=== PATIENT | male | born 1975 | race Caucasian/White ===

== ENCOUNTER 2018-03-11 21:33 | Emergency (ER) | END 2018-03-12 01:43 | disposition home or self-care (01) ==

== ENCOUNTER 2018-11-09 22:42 | Emergency (ER) | payer MEDICAID ==
[~2018-11-09] VITALS: Ht 172.7 cm; Wt 133.8 kg
[~2018-11-09 22:42] MED LIST: HYDR-4011 PO; IBUP-1542 PO
[2018-11-09 22:44] VITALS: Ht 172.7 cm; Wt 133.8 kg
[2018-11-09] MEDS ORDERED: NICARDipine HCL 30 MG CAPSULE PO ONE (23:30)
--- NOTE | 2018-11-10 00:18 | ERD ---
ER Documentation Chief Complaint Chief Complaint DIZZY, SOB X'S 2 DAYS. DENIES CP HPI 43-year-old male presenting with complaints of intermittent dizziness and intermittent dyspnea for the past 2 days. He states he has had symptoms like this before but never as severe. He denies any associated chest pain, cough, nausea, vomiting, abdominal pain, fever or chills. The shortness of breath is not worse with exertion. It has no alleviating or exacerbating factors. Currently he feels well and is not experiencing the symptoms. ROS All systems reviewed and are negative except as per history of present illness. Medications Home Meds Discontinued Scripts Hydrocodone/Acetaminophen ([place] 5-325 Tablet) 1 Each Tablet, 1 TAB PO Q6H PRN for PAIN, #7 TAB Prov:CHERRY,PAGE C 03/12/18 Ibuprofen* (Motrin*) 600 Mg Tab, 600 MG PO Q6, #30 TAB Prov:CHERRY,PAGE C 03/12/18 Allergies Allergies: Coded Allergies: No Known Allergy (Unverified , 11/09/18) PMhx/Soc Medical and Surgical Hx: pt denies Medical Hx, pt denies Surgical Hx Hx Alcohol Use: Yes (socially) Hx Substance Use: No Hx Tobacco Use: Yes Smoking Status: Former smoker FmHx Family History: No diabetes, No coronary disease Physical Exam Vitals Vital Signs Date Temp Pulse Resp B/P (MAP) Pulse Ox O2 O2 Flow FiO2 Time Delivery Rate 11/10/18 88 19 147/93 95 Room Air 00:45 (111) 11/10/18 80 18 150/105 96 Room Air 00:00 (120) 11/09/18 163/103 23:20 (123) 11/09/18 97.2 97 18 183/118 97 22:44 (139) Physical Exam Const: No acute distress, overweight Head: Atraumatic Eyes: Normal Conjunctiva ENT: Normal External Ears, Nose and Mouth. Neck: Full range of motion. No meningismus. Resp: Clear to auscultation bilaterally Cardio: Regular rate and rhythm, no murmurs. 2+ distal pulses Abd: Soft, non tender, non distended. Normal bowel sounds Skin: No petechiae or rashes Back: No midline or flank tenderness Ext: No cyanosis, or edema Neur: Awake and alert Psych: Normal Mood and Affect Result Diagram: 11/09/18 2318 11/09/18 2318 Results 24 hrs Laboratory Tests Test 11/09/18 23:18 White Blood Count 10.7 10^3/ul Red Blood Count 4.64 10^6/ul Hemoglobin 14.7 g/dl Hematocrit 43.8 % Mean Corpuscular Volume 94.4 fl Mean Corpuscular Hemoglobin 31.7 pg Mean Corpuscular Hemoglobin Concent 33.6 g/dl Red Cell Distribution Width 12.3 % Platelet Count 229 10^3/UL Mean Platelet Volume 9.5 fl Immature Granulocytes % 0.300 % Neutrophils % 50.2 % Lymphocytes % 36.3 % Monocytes % 9.8 % Eosinophils % 2.7 % Basophils % 0.7 % Nucleated Red Blood Cells % 0.0 /100WBC Immature Granulocytes # 0.030 10^3/ul Neutrophils # 5.4 10^3/ul Lymphocytes # 3.9 10^3/ul Monocytes # 1.1 10^3/ul Eosinophils # 0.3 10^3/ul Basophils # 0.1 10^3/ul Nucleated Red Blood Cells # 0.0 10^3/ul Sodium Level 144 mmol/L Potassium Level 4.1 mmol/L Chloride Level 107 mmol/L Carbon Dioxide Level 28 mmol/L Anion Gap 9 Blood Urea Nitrogen 13 mg/dl Creatinine 1.07 mg/dl Est Glomerular Filtrat Rate mL/min > 60 mL/min Glucose Level 103 mg/dl Calcium Level 9.3 mg/dl Troponin I < 0.012 ng/ml Current Medications Medications Dose Sig/Wally Start Time Status Last (Trade) Ordered Route PRN Stop Time Admin Dose Reason Admin Nicardipine 30 mg ONCE ONCE 11/09/18 DC 11/09/18 HCl PO 23:30 23:28 (Cardene) 11/09/18 23:31 Procedures/MDM EMERGENT LABS AND DIAGNOSTIC STUDIES: Lab Results above were reviewed and interpreted by me. CBC: no anemia or evidence of infection BMP: No e/o clinically significant electrolyte abnormality severe acidosis, alkalosis, renal failure, diabetic ketoacidosis Troponin within normal limits, not indicative of cardiac ischemia 12-lead EKG was interpreted by Teddy Garcia MD: Normal Sinus Rhythm with ventricular rate of 77 beats per minute Normal axis Normal intervals No acute ST or T wave changes suggestive of acute ischemia or STEMI. Radiology Results as interpreted by Radiology below were reviewed by Delaney Garcia MD: Chest x-ray shows no acute abnormalities Initial Nursing notes reviewed. Previous Medical Records requested via the Electronic Health Record. EMERGENCY DEPARTMENT COURSE / MEDICAL DECISION MAKING: Patient presents with intermittent dizziness and shortness of breath. EKG did not show any evidence of arrhythmia or ischemia. Labs were unremarkable. Troponin is within normal limits. Patient's blood pressure was elevated (>120/80) but appears stable without evidence of hypertensive emergency or urgency. He was treated with oral Cardene with improvement of his blood pressure. The patient was counseled about the risks of hypertension and urged to pursue outpatient monitoring and therapy within a week with their primary care physician. Departure Diagnosis: Primary Impression: Hypertension Hypertension type: unspecified Qualified Codes: I10 - Essential (primary) hypertension Additional Impression: Dyspnea Dyspnea type: shortness of breath Qualified Codes: R06.02 - Shortness of breath Condition: Stable JAYCOB GARCIA MD Nov 10, 2018 00:18
[2018-11-10 00:45] VITALS: BP 147/93; PULSE 88; RESP 19
== END 2018-11-10 00:45 | disposition home or self-care (01) ==
LOC: E/R 22:42
DX: I10 Essential (primary) hypertension (principal); R06.02 Shortness of breath; Z87.891 Personal history of nicotine dependence
CPT/HCPCS: 36415; 71045; 80048; 84484; 85025; 93005; Z7502; Z7610